=== PATIENT | female | born 1935 | race Caucasian/White ===

== ENCOUNTER 2024-06-23 08:32 | Emergency (ER) | payer MEDICARE ==
[~2024-06-23] VITALS: Ht 154.9 cm; Wt 70.8 kg
--- NOTE | 2024-06-23 08:52 | ERN ---
ED Note History of Present Illness Stated Complaint: LEFT KNEE, FALL Chief Complaint: Knee Injury/Swelling Time Seen by MD: 08:37 Dictation: Patient is a 88-year-old female with past medical history of diabetes came to the ED with a chief complaint of pain in the left leg. Patient informed about mechanical fall yesterday, she tripped and fell onto a cement step onto the right side and got up immediately, patient did not have any loss of consciousness, trauma to head. Patient has pain in the left lower leg at from the level of calf radiating up to the left thigh, patient complains of pain on movement of the left leg. Allergies: Coded Allergies: Penicillins (Unverified Allergy, Unknown, 06/23/24) Past Medical History Past Medical History: Diabetes-Type II, High Cholesterol, Hypertension Surgical History: Other Surgical History Other: KNEE Review of System Dictation Constitutional-no chills, weight loss/gain, fever Eyes-no injury, pain, redness and discharge ENT-no injury, pain, swelling Cardiovascular no chest pain, palpitations, edema Respiratory no shortness of breath, cough, wheezing Abdomen/GI-no abdominal pain, diarrhea, constipation, vomiting. Patient complains of mild nausea Back no injury and pain Genitourinary no injury, bleeding and discharge Musculoskeletal/extremities no injury, deformity . Left leg pain, from calf up to left thigh Skin no rash, discoloration . Mild discoloration on left knee Neuro-no headache, weakness, numbness, tingling, seizures, tremors Psych-no suicidal ideation, homicidal ideation, hallucinations, depression, anxiety, memory loss Initial Vital Sign VS Vital Signs Date Time Temp Pulse Resp B/P (MAP) Pulse Ox O2 Delivery O2 Flow Rate FiO2 06/23/24 08:33 98.8 65 16 197/75 98 Room Air 0 06/23/24 09:45 21 Physical Exam Dictation General-patient is awake alert and oriented Head/neck-normocephalic, atraumatic Eyes-PERRL, EOMI, vision at baseline Neck-trachea midline, supple, no nuchal rigidity Cardiovascular-RRR, normal S1/S2, no MRG is, no JVD Respiratory-no distress, wheezing, rales, rhonchi Abdomen-no tenderness, guarding, soft, nondistended Skin warm, dry, normal turgor, no rash Musculoskeletal/extremities pulses equal, no cyanosis. Neuro-COA X 4, GCS 15, strength 5/5, CN 2-12 intact Psych-normal behavior, mood and affect normal Results (Laboratory/Radiology) Laboratory/Radiology PATIENT: GEORGE CANDELARIA MR#: [id number] : 1935 SEX: F AGE: 88 LOCATION: [facility] ORDER [id number] STATUS: REG ER REPORT#: [id number] SERVICE 0839 REASON: fall ORDERING PHYSICIAN: TERESA CISNEROS MD PROCEDURE: KNEE 3V LT - KNEE 3VWS LT KNEE 3VWS LT REASON: fall TECHNIQUE: 3 views were obtained. FINDINGS: There is no evidence of fracture or dislocation. There is no joint effusion. The soft tissues appear unremarkable. There is no evidence of a radiopaque foreign body. There is mild medial joint space narrowing consistent with osteoarthritis. IMPRESSION: No acute findings. DICTATED BY: BOBBY MARC MD DATE: 06/23/24 1008 ELECTRONICALLY SIGNED BY: BOBBY MARC MD DATE: 06/23/24 1011 PATIENT: GEORGE CANDELARIA MR#: [id number] : 1935 SEX: F AGE: 88 LOCATION: [facility] ORDER [id number] STATUS: REG ER REPORT#: [id number] SERVICE 0844 REASON: suspicion of DVT ORDERING PHYSICIAN: ARBEN MCCARTHY MD PROCEDURE: VENOUS UNI - US VENOUS DOPPLER UNILATERAL US VENOUS DOPPLER UNILATERAL REASON: suspicion of DVT COMPARISON: None Technique: Left venous doppler ultrasound was performed with spectral analysis and color flow imaging technique. FINDINGS: There is a normal appearance of the common femoral, deep femoral, the profunda femoris and popliteal veins. Proximal calf veins appear normal as well. There is normal response to compression and augmentation. There is no evidence of deep venous thrombosis. IMPRESSION: Normal left lower extremity venous Doppler ultrasound. DICTATED BY: BOBBY MARC MD DATE: 06/23/24 0951 ELECTRONICALLY SIGNED BY: BOBBY MARC MD DATE: 06/23/24 0954 ED Course ED Course Orders Procedure Category Date Status Time Knee 3vws Lt RAD 06/23/24 Resulted 08:39 Acetaminophen 500mg PHA 06/23/24 Complete Tab (Tylenol 500mg T 09:00 Us Venous Doppler US 06/23/24 Resulted Unilateral 08:44 Knee Immobilizer NHI 06/23/24 In Process 10:34 Current Medications Medications (Trade) Dose Ordered Sig/Tisha Route PRN Reason Start Time Stop Time Status Last Admin Dose Admin Acetaminophen (TYLenol 500MG TAB) 500 mg ONCE ONCE PO 06/23/24 09:00 06/23/24 09:01 DC 06/23/24 09:05 Vital Signs Date Time Temp Pulse Resp B/P (MAP) Pulse Ox O2 Delivery O2 Flow Rate FiO2 06/23/24 09:45 98.8 70 16 146/74 100 Room Air* 0 21 06/23/24 08:33 98.8 65 16 197/75 98 Room Air 0 Medical Decision Making MDM INITIAL IMPRESSION Initial history and physical concerning for DVT, soft tissue pain due to fall, knee contusion Contributing medical problems: Diabetes, fall I have reviewed the triage nursing notes and vital signs. Initial plan: Laboratory evaluation and x-ray DATA REVIEW I have reviewed additional NN, repeat VS, and monitoring where indicated. Heart rate, blood pressure, and O2 saturation are acceptable. Jimenez diagnostic results: Other independent historian: Review of external data: ED COURSE Interventions: Imaging Reassessment: Not indicated DISPOSITION Final diagnostic impression: Knee contusion, knee strain I discussed my findings, clinical impression and treatment recommendations with the patient. I have reviewed the social factors contributing to the patient's presentation and disposition planning. My final plan for disposition was made based upon -mild risk of complications and potential morbidity of the patient's condition. -Discussion with the patient regarding management options. Patient will be discharged with pain medication and knee immobilizer DX & DISP Disposition: Discharge Departure Impression: Primary Impression: Contusion of knee, left Additional Impression: Strain of knee and leg, left Condition: Stable Additional Instructions: Come to the ED if you have any acute or emergency symptoms Rest and protect your knee. Take a break from any activity that may cause pain. Put ice or a cold pack on your knee for 10 to 20 minutes at a time. Put a thin cloth between the ice and your skin. Prop up a sore knee on a pillow when you ice it or anytime you sit or lie down for the next 3 days. Try to keep it above the level of your heart. This will help reduce swelling. If your knee is not swollen, you can put moist heat, a heating pad, or a warm cloth on your knee. Time of Disposition: 10:31 I have reviewed I have reviewed the case I WAS PRESENT AND PARTICIPATED IN THE CARE OF THIS PATIENT ALONGSIDE WITH THE RESIDENT PHYSICIAN. I HAVE REVIEWED AND PERSONALLY MADE AND APPROVED THE MANAGEMENT PLAN THAT IS DOCUMENTED IN THE NOTE BY MYSELF WITH THE RESIDENT PHYSICIAN. I ACKNOWLEDGED FOR RESPONSIBILITY FOR THE PATIENT'S MANAGEMENT PLAN. I have examined patient ARBEN MCCARTHY MD Jun 23, 2024 08:52 TERESA CISNEROS MD Jun 23, 2024 10:43
[2024-06-23] MEDS: acetaMINOPHEN 500 MG TABLET PO ONE (09:05)
--- NOTE | 2024-06-23 09:54 | HMCIMG ---
US VENOUS DOPPLER UNILATERAL REASON: suspicion of DVT COMPARISON: None Technique: Left venous doppler ultrasound was performed with spectral analysis and color flow imaging technique. FINDINGS: There is a normal appearance of the common femoral, deep femoral, the profunda femoris and popliteal veins. Proximal calf veins appear normal as well. There is normal response to compression and augmentation. There is no evidence of deep venous thrombosis. IMPRESSION: Normal left lower extremity venous Doppler ultrasound.
--- NOTE | 2024-06-23 10:11 | HMCIMG ---
KNEE 3VWS LT REASON: fall TECHNIQUE: 3 views were obtained. FINDINGS: There is no evidence of fracture or dislocation. There is no joint effusion. The soft tissues appear unremarkable. There is no evidence of a radiopaque foreign body. There is mild medial joint space narrowing consistent with osteoarthritis. IMPRESSION: No acute findings.
[2024-06-23 11:00] VITALS: BP 169/86; PULSE 70; RESP 16; TEMP 98; O2SAT 98
--- NOTE | 2024-06-23 11:19 | NUR ---
KNEE IMMOBILIZER APPLIED TO LEFT KNEE.PATIENT VERBALIZED UNDERSTANDING OF INSTRUCTIONS.WHEELED TO ENTRANCE IN A WHEELCHAIR.
== END 2024-06-23 11:22 | disposition home or self-care (01) ==
LOC: EDH 08:32
DX: S86.912A Strain of unspecified muscle(s) and tendon(s) at lower leg level, left leg, initial encounter (principal); S80.02XA Contusion of left knee, initial encounter; E11.9 Type 2 diabetes mellitus without complications; E78.00 Pure hypercholesterolemia, unspecified; I10 Essential (primary) hypertension; Z88.0 Allergy status to penicillin; W01.0XXA Fall on same level from slipping, tripping and stumbling without subsequent striking against object, initial encounter; Y93.89 Activity, other specified; Y92.89 Other specified places as the place of occurrence of the external cause; Y99.8 Other external cause status
CPT/HCPCS: 73562; 93971; 99284